=== PATIENT | male | born 1960 | race Caucasian/White ===

== ENCOUNTER 2016-05-20 10:50 | Emergency (ER) | payer OTHER ==
--- NOTE | ~2016-05-20 | EKG ---
PATIENT: ADRIAN HUDSON UNIT #: [id number] Ventricular Rate: 84 BPM Atrial Rate: 150 BPM QRS Duration: 68 ms Q-T Interval: 360 ms QTC Calculation(Bezet): 425 ms Calculated R Compton: 2 degrees Calculated T Compton: -2 degrees Diagnosis Line: Atrial fibrillation Diagnosis Line: Abnormal ECG Diagnosis Line: When compared with ECG of 20-MAY-2016 10:37, Diagnosis Line: (unconfirmed) Diagnosis Line: Inverted T waves have replaced nonspecific T wave Diagnosis Line: abnormality in Inferior leads Diagnosis Line: QT has lengthened Diagnosis Line: Confirmed by THEA OLIVER MD ([id number]) on Diagnosis Line: 05/21/2016 12:08:08 AM INTERPRETING MD: MELODY GRIFFITH
--- NOTE | ~2016-05-20 | CR72 ---
[facility] A Service [facility] RADIOLOGY TEXT RESULTS PATIENT: ADRIAN HUDSON LOCATION: [facility] : 62 UNIT #: [id number] AGE: [address]: Hadley Khan MD SEX: M ORDER DR: [id number] [facility] [address] [place] [address] [place], [place] [address] [id number] MR#: [id number] Acc #: [id number] NAME: ADRIAN HUDSON. : 1960 SEX: M STUDY DATE/TIME: 05/20/2016 10:44 UNIT: MAIKEL ROOM: STUDY DESCRIPTION: CR Chest Single View Portable Attending Physician: Hadley Khan M.D. Ordering Physician: Hadley Khan M.D. Primary Care Physician: Jesse Martin M.D. MEDICAL IMAGING REPORT This report is preliminary unless electronic signature is present EXAM Frontal chest, 05/20/2016. HISTORY 56-year-old male with history of heroin overdose today, stroke, hypertension, COPD. TECHNIQUE Frontal chest performed and compared with 11/17/2015. FINDINGS Cardiac silhouette is within normal limits. Vascularity is unremarkable. Lung volumes are lower, and there is bronchovascular crowding. No new dense consolidation, effusion, or pneumothorax. Probable benign enchondroma in the right humerus, not fully included within the field of view. This is unchanged from a prior study in 2013, however. IMPRESSION 1. Lower lung volumes with bronchovascular crowding. Otherwise, negative frontal chest. 2. Incidental benign-appearing enchondroma in the right humerus, unchanged dating back to 2012. Dictated by... Gee Huertas M.D. THIS IS AN ELECTRONICALLY VERIFIED REPORT Gee Huertas M.D. at 05/21/2016 7:28 AM AIDA/jermaine [facility] A Service [facility] RADIOLOGY TEXT RESULTS PATIENT: ADRIAN HUDSON LOCATION: [facility] : 62 UNIT #: [id number] AGE: [address]: Hadley Khan MD SEX: M ORDER DR: TD: 05/20/2016 17:02 JOB #: [id number] MEDICAL IMAGING REPORT COPY
--- NOTE | ~2016-05-20 | EKG ---
PATIENT: ADRIAN HUDSON UNIT #: [id number] Ventricular Rate: 101 BPM Atrial Rate: 174 BPM QRS Duration: 68 ms Q-T Interval: 290 ms QTC Calculation(Bezet): 376 ms Calculated R Cashmere: 18 degrees Calculated T Cashmere: 10 degrees Diagnosis Line: Atrial fibrillation with rapid ventricular Diagnosis Line: response Diagnosis Line: Abnormal ECG Diagnosis Line: No previous ECGs available Diagnosis Line: Confirmed by THEA OLIVER MD ([id number]) on Diagnosis Line: 05/21/2016 12:06:15 AM INTERPRETING MD: MELODY GRIFFITH
[~2016-05-20 10:50] MED LIST: ADDERALL 30 MG30 M1 PO; ALBUTEROL 0.5ML INH; ALBUTEROL20 ml INH; ALPRAZOLAM PO; AUGMENTIN PO; HYDROCHLOROTH12.5 MG PO; IBUPROFEN800 MG PO; LORTAB 10-3251 EACH PO; LORTAB 10-5001 EACH; LORTAB 7.5-5001 TAB PO; RESTLESS LEG MED; SIMVASTATIN80 MG PO; SPIRIVA18 MCG PO; SYMBICORT INH; TRAZODONE HCL100 MG PO; VOLTAREN75 MG PO
[2016-05-20 11:21] LABS: PARTIAL THROMBOPLASTIN TIME 22.6 SECONDS (23.5-31.3); PROTHROMBIN TIME (PATIENT) 10.5 SECONDS (9.6-11.5)
[2016-05-20 11:31] LABS: ALBUMIN SERUM 3.9 g/dL (3.5-5.0); ALKALINE PHOSPHATASE 91 U/L (32-92); ALT (SGPT) 64 U/L (10-40); AST (SGOT) 43 U/L (10-42); BILIRUBIN, DIRECT 0.1 mg/dL (0.0-0.2); BILIRUBIN,INDIRECT 0.2 mg/dL (0.0-0.9); BILIRUBIN,TOTAL 0.3 mg/dL (0.2-2.0); BLOOD UREA NITROGEN 16 mg/dL (9-23); CALCIUM SERUM 9.3 mg/dL (8.4-10.2); CARBON DIOXIDE 28 mmol/L (22-31); CHLORIDE 96 mmol/L (100-111); GLOM FILT RATE Estimated ABOVE60 mL/min (>60); GLUCOSE FASTING 210 mg/dL (70-110); POTASSIUM 3.9 mmol/L (3.5-5.1); PROTEIN TOTAL SERUM 7.7 g/dL (6.0-8.3); SALICYLATE <4.0 mg/dL; SODIUM 135 mmol/L (135-145)
[2016-05-20 11:36] LABS: ACETAMINOPHEN <10 ug/mL; ALCOHOL BLOOD <5 mg/dL (0)
[2016-05-20 13:06] LABS: BASOPHIL# 0.1 X10e3 (0-0.3); BASOPHIL% 0.6 % (0-2.5); EOSINOPHIL# 0.4 X10e3 (0-0.7); EOSINOPHIL% 3.5 % (0.0-7.0); HEMATOCRIT 43.1 % (38.0-50.0); HEMOGLOBIN 14.2 gm/dL (13.0-16.0); LYMPHOCYTE# 3.9 X10e3 (1.0-3.5); LYMPHOCYTE% 38.7 % (17.0-45.0); MEAN CELL VOLUME 94.8 FL (83-96); MEAN CORPUSCULAR HEMOGLOBIN 31.2 PG (28-34); MEAN CORPUSCULAR HGB CONC 32.9 g/dL (30-36); MEAN PLATELET VOLUME 9.1 FL (6.5-11.5); MONOCYTE# 0.7 X10e3 (0-1.0); MONOCYTE% 6.7 % (3.0-12.0); NEUTROPHIL# 5.1 X10e3 (1.5-7.1); NEUTROPHIL% 50.5 % (40-75); PLATELET COUNT 320 X10e3 (140-420); RED BLOOD COUNT 4.55 X10e (3.90-5.60); RED CELL DISTRIBUTION WIDTH 13.4 % (11.0-15.5); WHITE BLOOD COUNT 10.1 X10e3 (4.0-10.5)
[2016-05-20 13:07] LABS: DIFF IND NO
[2016-05-20 13:50] LABS: AMPHETAMINE POS (NEG); BARBITURATES NEG (NEG); BENZODIAZEPINES NEG (NEG); COCAINE NEG (NEG); MARIJUANA NEG (NEG); OPIATES POS (NEG); TRICYCLIC ANTIDEPRESSANTS NEG (NEG); U METHADONE NEG (NEG)
== END 2016-05-20 14:15 | disposition home or self-care (01) ==
LOC: CED 10:50
PROVIDERS: Emergency Medicine
DX: T40.1X1A Poisoning by heroin, accidental (unintentional), initial encounter (principal); I48.91 Unspecified atrial fibrillation; J44.9 Chronic obstructive pulmonary disease, unspecified; F17.210 Nicotine dependence, cigarettes, uncomplicated
CPT/HCPCS: 36415; 71010; 80048; 80076; 80307; 85025; 85610; 85730; 93005; 94640; 96361; 96374; 96375; 99284; G0480; J2930

== ENCOUNTER 2016-09-02 15:00 | Inpatient (IN) | payer OTHER ==
--- NOTE | ~2016-09-02 | PN ---
Unit #: [id number] #: [id number] Patient: ADRIAN LOUIS [id number] [facility] [address] [place] [address] [id number] I MR#: [id number] NAME: ADRIAN LOUIS. ROOM: P252 Age: 56 Sex: M Admission Date: 09/03/2016 : 1960 Attending Physician: Jean Munoz M.D. Admitting Physician: Jean Munoz M.D. Primary Care Physician: yLnn Vera PROGRESS NOTES DATE OF SERVICE: 09/07/2016 SUBJECTIVE Mr. Louis is a 56-year-old white male, who was seen today and chart was reviewed and the case was discussed with the staff. He has been anxious, withdrawn, and rather seclusive to himself. Meanwhile, he reports that he is feeling better and that he is trying to get into a long-term rehab level of care and his director of social work is helping him with that. Meanwhile, he has been taking the medications and tolerating them fairly well with no reported side effects. MENTAL STATUS EXAMINATION Middle-aged white male, who was casually dressed with fair personal hygiene, appears to be in no acute distress or discomfort. He was awake and alert with intact orientation. His mood was anxious with a congruent affect. He denies any suicidal or homicidal ideations. His insight and judgment remain slightly impaired. TREATMENT PLAN 1. We will continue him on his current treatment protocol. We will monitor his response to the medications and make further adjustments as needed. 2. We will continue to follow up. Dictated by... Lynn Singh/murray TD: 09/07/2016 20:12 JOB #: [id number] Unit #: [id number] #: [id number] Patient: ADRIAN LOUIS HELDERKRISTAL PROGRESS NOTES Page 1 of 1 X Jean Munoz MD PROGRESS NOTE
--- NOTE | ~2016-09-02 | PN ---
Unit #: [id number] #: [id number] Patient: ADRIAN LOUIS [id number] [facility] [address] [place] [address] [id number] I MR#: [id number] NAME: ADRIAN LOUIS. ROOM: P252 Age: 56 Sex: M Admission Date: 09/03/2016 : 1960 Attending Physician: Jean Munoz M.D. Admitting Physician: Jean Munoz M.D. Primary Care Physician: Lynn Vera PROGRESS NOTES DATE September 05, 2016 DISCUSSION Mr. Louis is a 56-year-old white male, with mood disorder, who was seen today and chart was reviewed and the case was discussed with the staff. Staff reports that the patient is anxious, withdrawn, depressed, and rather seclusive to himself. Meanwhile, he has been cooperative with the treatment recommendations and he has been taking the medications and tolerating them fairly well with no reported side effects. MENTAL STATUS EXAMINATION Middle-aged white male, who was casually dressed with fair personal hygiene and appears to be in no acute distress or discomfort. He was awake and alert with intact orientation. His mood is anxious with a congruent affect. He denies any suicidal or homicidal ideations. His insight and judgment remain slightly impaired. TREATMENT PLAN 1. We will continue him on his current medications and treatment protocol, and will monitor his response to the medications, and make further adjustments as needed. 2. We will continue to followup. Dictated by... Lynn Singh/tano TD: 09/05/2016 11:57 JOB #: [id number] Unit #: [id number] #: [id number] Patient: ADRIAN LOUIS PROGRESS NOTES Page 1 of 1 X Jean Munoz MD PROGRESS NOTE
--- NOTE | ~2016-09-02 | PA ---
Unit #: [id number] #: [id number] Patient: ADRIAN LOUIS [id number] [facility] [address] [place] [address] [id number] I MR#: [id number] NAME: ADRIAN LOUIS. ROOM: [facility] Age: 56 Sex: M Admission Date: 09/03/2016 : 1960 Date of Assessment: 09/04/2016 Attending Physician: Jean Munoz M.D. Admitting Physician: Jean Munoz M.D. Primary Care Physician: Jesse Martin M.D. PSYCHIATRIC ASSESSMENT DATE OF SERVICE 09/04/2016. IDENTIFYING DATA Mr. Louis is a 56-year-old white male, who is a resident of [place], [place], and was self-referred to the hospital as a transfer from [facility] Room. CHIEF COMPLAINT "I've been off my medicines for approximately 6 months." HISTORY OF PRESENT ILLNESS Mr. Louis is a 56-year-old white male with history of mood disorder and psychosis, who was initially evaluated on 09/02/2016 and was referred to the intensive outpatient treatment program, but he refused to do the outpatient treatment program due to lack of transportation and homelessness and his ex- is currently attending the outpatient treatment program. He, however, stated that he has been off his psychotropic medication for 6 months and he has been experiencing paranoia, thinking that people are following him and experiencing anxiety and depression and suicidal ideation with a plan to walk in front of the bus. He reports that he has been having issues with PTSD, and that he is having flashbacks and his recently left him 2 weeks ago and that he has a diagnosis of bipolar and was seen to be a significant threat to himself with a suicidal ideation, intent, and plan and as such, recommendation for inpatient level of care for safety and stabilization was made and the patient was stepped up to the inpatient unit. SUBSTANCE ABUSE HISTORY The patient denies any history of alcohol or drug abuse. PAST PSYCHIATRIC HISTORY The patient has [facility], and has been diagnosed and treated for bipolar disorder, but reports that he has been off his medication for 6 months and has been decompensating. PAST MEDICAL HISTORY No acute or chronic medical illnesses. ALLERGIES No known medication allergies. Unit #: [id number] #: [id number] Patient: ADRIAN LOUIS PERSONAL AND SOCIAL HISTORY A 56-year-old white male, who reports that he is single, unemployed, and homeless and has poor social support system. MENTAL STATUS EXAMINATION Middle-aged white male who was casually dressed with fair personal hygiene, appears to be in no acute distress or discomfort. He was awake and alert on interaction with intact orientation. His mood was anxious and depressed with a congruent affect. His speech was slow and restricted in content. His thought processes were disorganized with some looseness of associations and flight of ideas and suicidal ideations. His insight and judgment remain significantly impaired. DIAGNOSTIC IMPRESSION Psychiatric: Bipolar disorder, most recent episode depressed, recurrent, moderate, with psychosis. Medical: Asthma. Stressors: Mild psychosocial stressors. TREATMENT PLAN 1. The patient has presented with history of mood disorder and psychosis and suicidal ideations. He reports compliance with medication and has been decompensating and will need inpatient hospitalization for safety and stabilization. We will start him back on his home medications. We will adjust the medications and monitor response. 2. Supportive therapy was provided to the patient. 3. Safe, structured, and nourishing environment will be provided. ESTIMATED LENGTH OF STAY 5 to 7 days. ABILITY TO HELP SELF Limited. WILLINGNESS TO HELP SELF The patient appears to be willing to help self. STRENGTHS 1. Communicative. 2. Cooperative. PROBLEMS 1. Chronic dysphoric symptoms. 2. Poor social support system. DISCHARGE CRITERIA This will be contingent upon the patient's ability to show resolution of his depression and anxiety and psychosis and his ability to stay safe to himself, particularly after discharge from the hospital. Dictated by... Lynn Singh/murray TD: 09/04/2016 07:55 JOB #: [id number] Unit #: [id number] #: [id number] Patient: ADRIAN LOUIS PSYCHIATRIC ASSESSMENT Page 1 of 1 X Jean Munoz MD PSYCHIATRIC ASSESSMENT
--- NOTE | ~2016-09-02 | PN ---
Unit #: [id number] #: [id number] Patient: ADRIAN HUDSON [id number] [facility] [address] [place] [address] [id number] I MR#: [id number] NAME: ADRIAN HUDSON. ROOM: P252 Age: 56 Sex: M Admission Date: 09/03/2016 : 1960 Attending Physician: Jean Munoz M.D. Admitting Physician: Jean Munoz M.D. Primary Care Physician: Lynn Vera PROGRESS NOTES DATE OF SERVICE 09/06/2016 DISCUSSION Ms. Hudson is a 56-year-old white male who was seen today. Chart was reviewed and case was discussed with the staff. He has been anxious, withdrawn, and rather seclusive to himself. Meanwhile, he has been cooperative with the treatment recommendations and has been taking the medications and tolerating them fairly well with no reported side effects. MENTAL STATUS EXAMINATION Middle-aged white male who was casually dressed with fair personal hygiene, appears to be in no acute distress or discomfort. He was awake and alert on interaction with intact orientation. His mood is anxious with congruent affect. He denies any suicidal or homicidal ideations. His insight and judgment remain slightly impaired. TREATMENT PLAN 1. We will continue him on his current medications and treatment protocol. We will monitor his response to the medications as needed. 2. We will continue to follow up. Dictated by... Jean Munoz M.D. IAA/bzg TD: 09/06/2016 12:44 JOB #: [id number] PEAKRISTAL PROGRESS NOTES Page 1 of 1 X Jean Munoz MD X PROGRESS NOTE
--- NOTE | ~2016-09-02 | HP ---
Unit #: [id number] #: [id number] Patient: ADRIAN HUDSON [id number] [place] [address] [id number] I MR#: [id number] NAME: ADRIAN HUDSON. ROOM: P252 Age: 56 Sex: M Admission Date: 09/03/2016 : 1960 Attending Physician: Jean Munoz M.D. Admitting Physician: Jean Munoz M.D. Primary Care Physician: Jesse Martin M.D. HISTORY AND PHYSICAL HISTORY OF PRESENT ILLNESS Adrian is a 56 year old admitted to [address] [place] [address] with paranoia. He admits he is noncompliant with his psych medications. He had been referred to our outpatient program but he had no transportation so he was admitted to inpatient. PAST MEDICAL HISTORY COPD. PAST SURGICAL HISTORY Nothing reported. ALLERGIES No known drug allergies. SOCIAL HISTORY He denies cigarettes, alcohol and illicit drug use. FAMILY HISTORY Medically noncontributory. REVIEW OF SYSTEMS He does not answer all questions appropriately. There are no reports of nausea, vomiting or diarrhea. He has had no cough or increased temperature. CURRENT MEDICATIONS 1. Carver 300 mg daily. 2. Protonix 40 mg daily. 3. Aspirin 81 mg daily. 4. Desyrel 50 mg q.h.s. 5. Zyprexa 10 mg b.i.d. 6. Vistaril 25 mg t.i.d. 7. Proventil inhaler p.r.n. 8. Milk of Magnesia p.r.n. 9. Maalox p.r.n. 10. Tylenol p.r.n. PHYSICAL EXAMINATION GENERAL: Alert, well-nourished, in no apparent distress. VITAL SIGNS: Blood pressure 142/88, heart rate 80, respirations 16, temperature 98.6. WEIGHT: 155. HEIGHT: 5 feet 5 inches. Unit #: [id number] #: [id number] Patient: ADRIAN HUDSON SKIN: Warm and dry without rash. He does have multiple scabbed areas about his face and arms. HEENT: Normocephalic. TMs not viewed. Oral and nasal passages clear. Conjunctivae clear. PERRLA. EOMs intact. NECK: Supple without lymphadenopathy or thyromegaly. HEART: Regular rate and rhythm without murmur. LUNGS: Clear. ABDOMEN: Soft, nontender. : Not done. EXTREMITIES: No evidence of cyanosis, clubbing or edema. Moves all without focal deficit. NEUROLOGICAL: Grossly within normal limits. Cranial Nerves: II: Visual briones are intact. III, IV AND : Extraocular movements are intact. Pupils are equal, round and reactive to light. V: Facial sensation is grossly normal. VII: Facial movements and expression are normal. VIII: Auditory acuity grossly intact. IX, X: Uvula is midline. Phonation is normal. XI: Patient shrugs shoulders and turns head normally. XII: Tongue protrudes in the midline. Sensory and Motor Function: Sensory and motor sensation is grossly normal. Motor: moves all extremities well. Coordination: Gait is normal. Deep Tendon Reflexes: Intact. IMPRESSION Psychiatric admission. RECOMMENDATIONS PSYCHIATRIC: Per psychiatrist. MEDICAL: See no contraindications to participate in facility's activities. MEDICAL PROGNOSIS Good. MEDICAL CONDITION Stable. Dictated by... Amy AlmarazARachel. for Lynn Weiss/lisseth TD: 09/04/2016 20:00 JOB #: [id number] HISTORY AND PHYSICAL Page 1 of 1 X Nga Lennon HISTORY AND PHYSICAL
--- NOTE | ~2016-09-02 | DS ---
Unit #: [id number] #: [id number] Patient: [facility] [id number] [facility] [address] [place] [address] [id number] I MR#: [id number] NAME: ADRIAN LOUIS. ROOM: [facility] Age: 56 Sex: M Admission Date: 09/03/2016 : 1960 Discharge Date: 09/07/2016 Attending Physician: Jean Munoz M.D. Primary Care Physician: Jesse Martin M.D. DISCHARGE SUMMARY IDENTIFYING DATA Mr. Louis is a 56-year-old white male with history of mood disorder and substance abuse, who was self-referred to the hospital. DISCHARGE DIAGNOSES Psychiatric: Bipolar disorder, most recent episode depressed, recurrent, moderate, without psychotic features and opioid dependence, moderate, in acute withdrawal. Medical: Chronic obstructive pulmonary disease. Stressors: Moderate psychosocial stressors. HISTORY OF PRESENT ILLNESS Please see initial psychiatric evaluation for details. PAST PSYCHIATRIC HISTORY Please see initial psychiatric evaluation for details. PAST MEDICAL HISTORY Please see initial psychiatric evaluation for details. HOSPITAL COURSE The patient was admitted to the adult chemical dependency and psychiatric unit at [facility] and was oriented to the hospital environment. Routine p.r.n. medications were initiated, and he was started back on his home medications and was closely monitored. He was taking the medications regularly and was tolerating them fairly well and was able to come out of the detox without any complications and was willing to continue treatment on an outpatient basis and as such, it was decided that he will be discharged home and will continue treatment on an outpatient basis. DISCHARGE CONDITION Stable. PROGNOSIS Fair. Dictated by... Lynn Singh/murray TD: 10/03/2016 14:44 Unit #: [id number] #: [id number] Patient: ADRIAN LOUIS JOB #: [id number] DISCHARGE SUMMARY Page 1 of 1 X Jean Munoz MD X DISCHARGE SUMMARY
== END 2016-09-07 15:45 | disposition home or self-care (01) | DRG 885 ==
LOC: P2L 09-03 20:49
DX: F31.32 Bipolar disorder, current episode depressed, moderate (principal); J44.9 Chronic obstructive pulmonary disease, unspecified; J45.909 Unspecified asthma, uncomplicated
CPT/HCPCS: 80178